=== PATIENT | male | born 1955 | race Caucasian/White ===

== ENCOUNTER → 2022-10-01 | Outpatient (CLI) | payer MEDICARE, BC ==
[2022-10-01 21:29] LABS: HCT 44.3 % (39.6-50.0); HGB 14.1 d/dL (12.0-15.0); MCHC 31.8 d/dL (32.0-37.0); MCV 91.2 FL (80.0-97.0); Mean Platelet Volume 12.5 FL (9.5-12.2); NRBC Per 100 WBC 0 X 10*3/uL (0.00-0.01); Platelet Count 202 X 10*3/uL (140-440); RBC 4.86 X 10*6/uL (4.40-5.60); RDW 14.6 % (11.5-14.5); WBC 8.24 X 10*3/uL (4.50-10.00)
[2022-10-01 22:29] LABS: Erythrocyte Sedimentation Rate 42 mm/Hr (0-20)
[2022-10-02 02:18] LABS: C Reactive Protein 3.9 mg/dL (0.00-0.80); Uric Acid 4.3 mg/dL (3.7-8.7)
== END | disposition home or self-care (01) ==
LOC: LABWHC1 15:09
PROVIDERS: ATTEND Physician Assistant
DX: M11.841 Other specified crystal arthropathies, right hand (principal); M25.531 Pain in right wrist; M79.641 Pain in right hand; M25.431 Effusion, right wrist
CPT/HCPCS: 36415; 83520; 84550; 85027; 85652; 86140